=== PATIENT | female | born 1945 | race Caucasian/White ===

== ENCOUNTER 2020-08-12 06:19 | Inpatient (IN) ==
[2020-08-12] MEDS ORDERED: LORazepam 2 MG/1 ML VIAL IV STA (06:27)
[2020-08-12] MEDS ORDERED: HYDROmorphone 2 MG/1 ML VIAL IV STA (06:27)
[2020-08-12] MEDS ORDERED: ONDANSETRON 4 MG/2 ML VIAL IV STA (06:27)
[2020-08-12 07:21] LABS: Basophils # 0.1 10*3/uL (0.0-0.2); Eosinophils # 0.5 10*3/uL (0.0-0.87); Eosinophils % 7.6 % (0.00-10.9); Hematocrit 34.2 VOL% (35.7-47.0); Hemoglobin 11.6 GM/DL (12.0-16.0); Immature Granulocytes % 0.2 %; Immature Granulocytes Absolute 0.01 #; Lymphocytes % 33.1 % (21.3-54.2); Mean Corpuscular HGB Conc 33.9 GM/DL (32-36); Mean Corpuscular Volume 89.3 FL (87-102); Mean Platelet Volume 10.3 FL (9.6-12.0); Monocytes % 9.6 % (1.7-12.7); Neutrophils % 48.5 % (38.7-73.9); Platelet Count 204 T/CUMM (130-400); Red Blood Count 3.83 MC/CUMM (3.8-5.5); Red Cell Distribution Width 12.5 % (9.3-17.3); White Blood Count 5.9 T/CUMM (4-12)
[2020-08-12] MEDS ORDERED: HYDROmorphone 2 MG/1 ML VIAL IV PRN (07:27)
[2020-08-12 07:31] LABS: INR 1.2; PT Patient Result 12.6 SECS (9.8-11.9); Partial Thromboplastin Time 28.7 SECS (23.9-33.8)
[2020-08-12] MEDS ORDERED: DEXTROSE 50% 25 GM/50 ML VIAL IV PRN (07:36)
[2020-08-12] MEDS ORDERED: ONDANSETRON 4 MG/2 ML VIAL IV PRN (07:36)
[2020-08-12] MEDS ORDERED: GLUCAGON 1 MG VIAL IM PRN (07:36)
[2020-08-12] MEDS ORDERED: ceFAZolin 1,000 MG in SYRINGE 1 EACH IV ONE (07:42)
[2020-08-12 07:54] LABS: Albumin 4.1 G/DL (3.4-5.0); Bilirubin,Total 0.5 MG/DL (0.2-1.0); Calcium 9.5 MG/DL (8.5-10.1); Osmolality,Calculated 285.5 MOS/KG (273-304); Total Protein 7.9 G/DL (6.4-8.3)
[2020-08-12] MEDS: ONDANSETRON 4 MG/2 ML VIAL IV PRN ×2 (08:06→13:30)
[2020-08-12] MEDS: SODIUM CHLORIDE 0.9% 1,000 ML IV SCH ×2 (09:15→18:00)
[2020-08-12] MEDS: INSULIN LISPRO 100 UNIT/ML SUBCUT SCH ×4 (09:49→20:49)
[2020-08-12] MEDS: PANTOPRAZOLE 40 MG TABLET PO SCH (09:55)
[2020-08-12] MEDS: DOCUSATE SODIUM 100 MG CAPSULE PO SCH ×2 (09:55→20:48)
[2020-08-12] MEDS ORDERED: BUPIVACAINE MPF 0.5% /EPI 30 ML VIAL ONE (11:00)
[2020-08-12] MEDS: diphenhydrAMINE CAP 25 MG CAPSULE PO PRN (14:56)
[2020-08-12] MEDS: ACETAMINOPHEN 325 MG TABLET PO PRN ×2 (16:29→23:30)
[2020-08-12] MEDS: amLODIPine 10 MG TABLET PO SCH (18:00)
[2020-08-12] MEDS: GLIMEPIRIDE 2 MG TABLET PO SCH (18:00)
[2020-08-12] MEDS ORDERED: KETOROLAC 30 MG/1 ML VIAL IV ONE (20:09)
[2020-08-12] MEDS: carvediloL 25 MG TABLET PO SCH (20:48)
[2020-08-12] MEDS: cloNIDine 0.1 MG TABLET PO SCH (20:48)
[2020-08-12] MEDS ORDERED: cloNIDine 0.1 MG TABLET PO ONE (22:30)
[2020-08-12] MEDS ORDERED: traMADol 50 MG TABLET PO PRN (22:42)
[2020-08-12] MEDS: ROSUVASTATIN 20 MG TABLET PO SCH (23:33)
[2020-08-13] MEDS: SODIUM CHLORIDE 0.9% 1,000 ML IV SCH (02:20)
[2020-08-13 05:35] LABS: Basophils # 0.1 10*3/uL (0.0-0.2); Basophils % 0.6 % (0.0-0.8); Eosinophils # 0.3 10*3/uL (0.0-0.87); Eosinophils % 2.9 % (0.00-10.9); Hemoglobin 10.7 GM/DL (12.0-16.0); Immature Granulocytes % 0.2 %; Immature Granulocytes Absolute 0.02 #; Lymphocytes # 2.1 10*3/uL (1.4-4.0); Lymphocytes % 24.7 % (21.3-54.2); Mean Corpuscular HGB Conc 33.4 GM/DL (32-36); Mean Corpuscular Volume 91.4 FL (87-102); Monocytes % 11.4 % (1.7-12.7); Neutrophils % 60.2 % (38.7-73.9); Platelet Count 215 T/CUMM (130-400); Red Cell Distribution Width 12.7 % (9.3-17.3); White Blood Count 8.5 T/CUMM (4-12)
[2020-08-13 06:16] LABS: Calcium 8.6 MG/DL (8.5-10.1); Osmolality,Calculated 285.3 MOS/KG (273-304)
[2020-08-13] MEDS ORDERED: ceFAZolin 1,000 MG in SYRINGE 1 EACH IV ONE (07:30)
[2020-08-13] MEDS ORDERED: BACITRACIN OINT 0.9 GM PACK TOP ONE (07:35)
[2020-08-13] MEDS: INSULIN LISPRO 100 UNIT/ML SUBCUT SCH ×4 (07:38→22:54)
[2020-08-13] MEDS ORDERED: VANCOMYCIN INJ 1,000 MG in SODIUM CHLORIDE 0.9% 250 ML IV ONE (07:42)
[2020-08-13] MEDS: DOCUSATE SODIUM 100 MG CAPSULE PO SCH ×3 (08:12→21:37)
[2020-08-13] MEDS ORDERED: HYDROmorphone 2 MG/1 ML VIAL ONE ×2 (08:12→10:41)
[2020-08-13] MEDS: GLIMEPIRIDE 2 MG TABLET PO SCH ×2 (08:12→17:28)
[2020-08-13] MEDS ORDERED: MAGNESIUM HYDROXIDE SUSP 30 ML UDCUP PO PRN (09:03)
[2020-08-13] MEDS ORDERED: MORPHINE 4 MG/1 ML VIAL IV PRN (09:03)
[2020-08-13] MEDS ORDERED: LIDOCAINE 2% 5 ML VIAL ONE (10:25)
[2020-08-13] MEDS ORDERED: propofoL 200 MG/20 ML VIAL IV ONE (10:25)
[2020-08-13] MEDS ORDERED: GLYCOPYRROLATE 0.4 MG/2 ML VIAL ONE (10:26)
[2020-08-13] MEDS ORDERED: SEVOFLURANE 1 UNIT/15 MINUTE INH ONE (10:26)
[2020-08-13] MEDS ORDERED: TRANEXAMIC ACID 1,000 MG/10 ML VIAL ONE (10:26)
[2020-08-13] MEDS ORDERED: fentaNYL 100 MCG/2 ML VIAL ONE (10:26)
[2020-08-13] MEDS ORDERED: ROCURONIUM 100 MG/10 ML VIAL IV ONE (10:26)
[2020-08-13] MEDS ORDERED: LACTATED RINGERS 1,000 ML IV ONE (10:26)
[2020-08-13] MEDS ORDERED: MIDAZOLAM 2 MG/2 ML VIAL ONE (10:26)
[2020-08-13] MEDS ORDERED: ACETAMINOPHEN 1,000 MG/100 ML VIAL IV ONE (10:26)
[2020-08-13] MEDS ORDERED: ONDANSETRON 4 MG/2 ML VIAL ONE ×2 (10:26→10:34)
[2020-08-13] MEDS ORDERED: NEOSTIGMINE 10 MG/10 ML VIAL ONE (10:27)
[2020-08-13] MEDS: ONDANSETRON 4 MG/2 ML VIAL IV PRN ×2 (10:35→17:32)
[2020-08-13] MEDS ORDERED: HYDROmorphone 2 MG/1 ML VIAL IV PRN (10:42)
[2020-08-13] MEDS: carvediloL 25 MG TABLET PO SCH ×2 (11:50→21:33)
[2020-08-13] MEDS: amLODIPine 10 MG TABLET PO SCH (11:50)
[2020-08-13] MEDS: cloNIDine 0.1 MG TABLET PO SCH ×2 (11:50→21:33)
[2020-08-13] MEDS: PANTOPRAZOLE 40 MG TABLET PO SCH (11:50)
[2020-08-13] MEDS: diphenhydrAMINE CAP 25 MG CAPSULE PO PRN ×2 (11:59→22:54)
[2020-08-13] MEDS: LACTATED RINGERS 1,000 ML IV SCH ×2 (12:01→23:00)
[2020-08-13] MEDS: ceFAZolin 1,000 MG in SYRINGE 1 EACH IV SCH ×2 (13:09→21:40)
[2020-08-13] MEDS: MORPHINE 4 MG/1 ML VIAL IV PRN ×2 (17:27→21:21)
[2020-08-13] MEDS: ACETAMINOPHEN 325 MG TABLET PO PRN (21:32)
[2020-08-13] MEDS: ROSUVASTATIN 20 MG TABLET PO SCH (21:33)
[2020-08-14] MEDS: LACTATED RINGERS 1,000 ML IV SCH (02:50)
[2020-08-14] MEDS: MORPHINE 4 MG/1 ML VIAL IV PRN (05:31)
[2020-08-14] MEDS: FONDAPARINUX 2.5 MG/0.5 ML SYRINGE SUBCUT SCH (05:32)
[2020-08-14 05:56] LABS: Basophils # 0.1 10*3/uL (0.0-0.2); Basophils % 0.5 % (0.0-0.8); Eosinophils # 0.4 10*3/uL (0.0-0.87); Eosinophils % 3.5 % (0.00-10.9); Hematocrit 29.2 VOL% (35.7-47.0); Hemoglobin 9.6 GM/DL (12.0-16.0); Immature Granulocytes % 0.3 %; Immature Granulocytes Absolute 0.03 #; Lymphocytes # 2.3 10*3/uL (1.4-4.0); Lymphocytes % 22.8 % (21.3-54.2); Mean Corpuscular HGB Conc 32.9 GM/DL (32-36); Mean Corpuscular Volume 91.8 FL (87-102); Mean Platelet Volume 9.9 FL (9.6-12.0); Monocytes % 10.6 % (1.7-12.7); Neutrophils % 62.3 % (38.7-73.9); Platelet Count 174 T/CUMM (130-400); Red Blood Count 3.18 MC/CUMM (3.8-5.5); Red Cell Distribution Width 12.9 % (9.3-17.3); White Blood Count 10.3 T/CUMM (4-12)
[2020-08-14 06:23] LABS: Calcium 8.9 MG/DL (8.5-10.1); Osmolality,Calculated 279.5 MOS/KG (273-304)
[2020-08-14] MEDS: INSULIN LISPRO 100 UNIT/ML SUBCUT SCH ×4 (06:59→21:55)
[2020-08-14] MEDS ORDERED: PHENOL 1.4% THROAT SPRAY 177 ML BOTTLE PO PRN (07:40)
[2020-08-14] MEDS: ACETAMINOPHEN 325 MG TABLET PO PRN ×2 (08:09→18:13)
[2020-08-14] MEDS: DOCUSATE SODIUM 100 MG CAPSULE PO SCH ×4 (09:00→21:55)
[2020-08-14] MEDS: amLODIPine 10 MG TABLET PO SCH (09:01)
[2020-08-14] MEDS: cloNIDine 0.1 MG TABLET PO SCH ×2 (09:01→21:55)
[2020-08-14] MEDS: PANTOPRAZOLE 40 MG TABLET PO SCH (09:01)
[2020-08-14] MEDS: carvediloL 25 MG TABLET PO SCH ×2 (09:01→21:55)
[2020-08-14] MEDS: BENZOCAINE/MENTHOL LOZENGE 18/BOX PO PRN ×4 (09:06→23:16)
[2020-08-14] MEDS: GLIMEPIRIDE 2 MG TABLET PO SCH ×2 (10:04→17:48)
[2020-08-14] MEDS: ROSUVASTATIN 20 MG TABLET PO SCH (21:55)
[2020-08-15] MEDS: FONDAPARINUX 2.5 MG/0.5 ML SYRINGE SUBCUT SCH (06:04)
[2020-08-15 06:06] LABS: Basophils % 0.4 % (0.0-0.8); Eosinophils # 0.4 10*3/uL (0.0-0.87); Eosinophils % 4.2 % (0.00-10.9); Hematocrit 27.3 VOL% (35.7-47.0); Hemoglobin 9.2 GM/DL (12.0-16.0); Immature Granulocytes % 0.3 %; Immature Granulocytes Absolute 0.03 #; Lymphocytes # 2.5 10*3/uL (1.4-4.0); Lymphocytes % 25.9 % (21.3-54.2); Mean Corpuscular HGB Conc 33.7 GM/DL (32-36); Mean Platelet Volume 10.5 FL (9.6-12.0); Monocytes % 9.8 % (1.7-12.7); Neutrophils % 59.4 % (38.7-73.9); Platelet Count 170 T/CUMM (130-400); Red Cell Distribution Width 12.6 % (9.3-17.3); White Blood Count 9.6 T/CUMM (4-12)
[2020-08-15 06:29] LABS: Albumin 2.7 G/DL (3.4-5.0); Bilirubin,Total 0.7 MG/DL (0.2-1.0); Calcium 8.9 MG/DL (8.5-10.1); Osmolality,Calculated 279.5 MOS/KG (273-304); Total Protein 6.5 G/DL (6.4-8.3)
[2020-08-15] MEDS: INSULIN LISPRO 100 UNIT/ML SUBCUT SCH ×4 (07:40→21:00)
[2020-08-15] MEDS: amLODIPine 10 MG TABLET PO SCH (09:19)
[2020-08-15] MEDS: carvediloL 25 MG TABLET PO SCH ×2 (09:19→21:00)
[2020-08-15] MEDS: DOCUSATE SODIUM 100 MG CAPSULE PO SCH ×4 (09:20→22:43)
[2020-08-15] MEDS: PANTOPRAZOLE 40 MG TABLET PO SCH (09:20)
[2020-08-15] MEDS: cloNIDine 0.1 MG TABLET PO SCH ×2 (09:20→21:05)
[2020-08-15] MEDS: GLIMEPIRIDE 2 MG TABLET PO SCH ×2 (09:20→17:57)
[2020-08-15] MEDS: ACETAMINOPHEN 325 MG TABLET PO PRN (17:55)
[2020-08-15] MEDS: ROSUVASTATIN 20 MG TABLET PO SCH (21:00)
[2020-08-16] MEDS: FONDAPARINUX 2.5 MG/0.5 ML SYRINGE SUBCUT SCH (05:13)
[2020-08-16 06:54] LABS: Basophils # 0.1 10*3/uL (0.0-0.2); Basophils % 0.7 % (0.0-0.8); Eosinophils # 0.4 10*3/uL (0.0-0.87); Eosinophils % 4.4 % (0.00-10.9); Hematocrit 26.8 VOL% (35.7-47.0); Hemoglobin 9.2 GM/DL (12.0-16.0); Immature Granulocytes % 0.4 %; Immature Granulocytes Absolute 0.03 #; Lymphocytes # 1.6 10*3/uL (1.4-4.0); Lymphocytes % 18.9 % (21.3-54.2); Mean Corpuscular HGB Conc 34.3 GM/DL (32-36); Mean Corpuscular Volume 88.2 FL (87-102); Mean Platelet Volume 10.4 FL (9.6-12.0); Monocytes % 8.7 % (1.7-12.7); Neutrophils % 66.9 % (38.7-73.9); Platelet Count 197 T/CUMM (130-400); Red Blood Count 3.04 MC/CUMM (3.8-5.5); Red Cell Distribution Width 12.5 % (9.3-17.3); White Blood Count 8.3 T/CUMM (4-12)
[2020-08-16] MEDS: carvediloL 25 MG TABLET PO SCH ×2 (09:21→21:56)
[2020-08-16] MEDS: amLODIPine 10 MG TABLET PO SCH (09:21)
[2020-08-16] MEDS: DOCUSATE SODIUM 100 MG CAPSULE PO SCH ×4 (09:21→23:11)
[2020-08-16] MEDS: GLIMEPIRIDE 2 MG TABLET PO SCH ×2 (09:21→17:59)
[2020-08-16] MEDS: cloNIDine 0.1 MG TABLET PO SCH ×2 (09:23→21:56)
[2020-08-16] MEDS: PANTOPRAZOLE 40 MG TABLET PO SCH (09:23)
[2020-08-16] MEDS: INSULIN LISPRO 100 UNIT/ML SUBCUT SCH ×4 (09:23→21:00)
[2020-08-16] MEDS: ACETAMINOPHEN 325 MG TABLET PO PRN (18:06)
[2020-08-16] MEDS: ROSUVASTATIN 20 MG TABLET PO SCH (21:56)
[2020-08-17 06:12] LABS: Basophils # 0.1 10*3/uL (0.0-0.2); Basophils % 0.7 % (0.0-0.8); Eosinophils # 0.4 10*3/uL (0.0-0.87); Eosinophils % 6.6 % (0.00-10.9); Hematocrit 28.5 VOL% (35.7-47.0); Hemoglobin 9.6 GM/DL (12.0-16.0); Immature Granulocytes % 0.3 %; Immature Granulocytes Absolute 0.02 #; Lymphocytes # 1.6 10*3/uL (1.4-4.0); Lymphocytes % 23.1 % (21.3-54.2); Mean Corpuscular HGB Conc 33.7 GM/DL (32-36); Mean Corpuscular Volume 89.6 FL (87-102); Mean Platelet Volume 10.3 FL (9.6-12.0); Monocytes % 9.8 % (1.7-12.7); Neutrophils % 59.5 % (38.7-73.9); Platelet Count 237 T/CUMM (130-400); Red Blood Count 3.18 MC/CUMM (3.8-5.5); Red Cell Distribution Width 12.4 % (9.3-17.3); White Blood Count 6.7 T/CUMM (4-12)
[2020-08-17] MEDS: FONDAPARINUX 2.5 MG/0.5 ML SYRINGE SUBCUT SCH (07:35)
[2020-08-17] MEDS: GLIMEPIRIDE 2 MG TABLET PO SCH (09:07)
[2020-08-17] MEDS: cloNIDine 0.1 MG TABLET PO SCH (09:10)
[2020-08-17] MEDS: amLODIPine 10 MG TABLET PO SCH (09:12)
[2020-08-17] MEDS: carvediloL 25 MG TABLET PO SCH (09:12)
[2020-08-17] MEDS: DOCUSATE SODIUM 100 MG CAPSULE PO SCH ×2 (09:13→10:19)
[2020-08-17] MEDS: PANTOPRAZOLE 40 MG TABLET PO SCH (09:13)
[2020-08-17] MEDS: INSULIN LISPRO 100 UNIT/ML SUBCUT SCH ×2 (10:06→12:16)
[2020-08-17] MEDS: ACETAMINOPHEN 325 MG TABLET PO PRN (13:20)
[2020-08-17 15:41] VITALS: BP 176/77
== END 2020-08-17 16:36 | disposition home health service (06) | DRG 522 ==
LOC: EDUNIT# → EDBD → N.ED 06:19 → N.EDINP 06:53 → N.3E 08:54
PROVIDERS: ADMIT Internal Medicine; ATTEND Internal Medicine